=== PATIENT | female | born 1960 | race Caucasian/White ===

== ENCOUNTER 2019-09-25 13:30 | Outpatient (CLI) | payer MEDICARE, MEDICAID, SELFPAY ==
--- NOTE | 2019-09-25 13:36 | US_ITS ---
WS: [id number] Bilateral renal ultrasound, 09/25/2019 Clinical Data: CHRONIC KIDNEY DZ/STAGE 3 Comparison: Ultrasound, 12/22/2016. Findings: The right kidney measures 11.4 cm x 5.1 cm x 5.0 cm and the left kidney is 10.6 cm x 5.6 cm x 5.5 cm. There is a right renal cyst measuring 2.48 x 2.71 x 2.90 cm. There is a left renal cyst measuring 3. 08 x 3.49 x 3.98 cm. The renal cortical margins are normal. No hydronephrosis or renal calculi are no jigar. The abdominal aorta and inferior vena cava show no vascular abnormalities. The bladder was scanned and was not remarkable. US/US renal BI* [id number] Impression: Bilateral renal cysts.
== END 2019-09-25 13:31 | disposition home or self-care (01) ==
LOC: RAD 13:34
PROVIDERS: Family Provider Internal Medicine; PCP Internal Medicine; Visit Provider Internal Medicine
DX: N18.3 Chronic kidney disease, stage 3 (moderate) (principal); N28.1 Cyst of kidney, acquired
CPT/HCPCS: 76770

== ENCOUNTER 2019-09-27 09:23 | Outpatient (RCR) | payer MEDICARE, MEDICAID, SELFPAY | END 2019-10-13 23:59 | disposition home or self-care (01) | LOC: SPT 09:23 | PROVIDERS: Family Provider Internal Medicine; PCP Internal Medicine; Referring Provider Internal Medicine; Visit Provider Internal Medicine | DX: M25.512 Pain in left shoulder (principal) | CPT/HCPCS: 97110; 97161; 97530 ==

== ENCOUNTER 2019-10-14 06:00 | Outpatient (RCR) | payer MEDICARE, MEDICAID, SELFPAY | END 2019-11-11 23:59 | disposition home or self-care (01) | LOC: SPT 06:00 | PROVIDERS: Family Provider Internal Medicine; PCP Internal Medicine; Referring Provider Internal Medicine; Visit Provider Internal Medicine | DX: M25.512 Pain in left shoulder (principal) | CPT/HCPCS: 97110 ==

== ENCOUNTER 2020-04-19 13:13 | Outpatient (CLI) | payer MEDICARE, MEDICAID, SELFPAY ==
--- NOTE | 2020-04-19 13:55 | USCV_ITS ---
Keren Degroot Age: 60 Gender: F : 1960 Exam Date: 04/19/2020 14:01 Ordering Phys: Hannah Rowan MD Technologist: Dimitri Frias [place] [facility] [place] RT LEG PAIN AND SWELLING HISTORY: Lower extremity edema. PROCEDURES: Venous duplex imaging was performed in only the right lower extremity. The following venous structures were evaluated: common femoral vein, profunda vein, proximal portion of the greater saphenous vein, superficial femoral vein, and the popliteal vein. In addition, the posterior tibial and peroneal trunk were evaluated. On the right side, the common femoral, superficial femoral, profunda femoral, popliteal, posterior tibial, greater saphenous veins and the peroneal trunk were identified and interrogated in the standard fashion. These veins were found to be easily compressible with spontaneous blood flow. No evidence of insufficiency or thrombus noted. FINDINGS: Normal 2-D Doppler and augmentation and compressibility throughout the lower extremity venous structures. Additional imaging through the proximal calf veins also reveals no thrombus. Limited evaluation of the greater saphenous vein is patent with no thrombus.. CONCLUSIONS No DVT in the above-mentioned identifiable veins Dr Kathleen Knox MD [facility] (Electronically Signed) Final Date: 19 April 2020 17:37 S
== END 2020-04-19 13:14 | disposition home or self-care (01) ==
LOC: RAD 13:16
PROVIDERS: PCP Internal Medicine; Visit Provider Internal Medicine
DX: M79.604 Pain in right leg (principal); M79.89 Other specified soft tissue disorders
CPT/HCPCS: 93971

== ENCOUNTER 2020-06-05 09:43 | Outpatient (CLI) | payer MEDICARE, MEDICAID, SELFPAY ==
--- NOTE | 2020-06-05 09:51 | MM_ITS ---
WS: [id number] BILATERAL SCREENING DIGITAL MAMMOGRAM WITH CAD HISTORY: SCREEN COMPARISON: 02/17/2019 and 07/18/2015 Bilateral CC and MLO views submitted. Computer aided detection analyzed. Breast composition: There are scattered areas of fibroglandular density. No suspicious masses, microc alcifications or architectural distortion. Stable 5 mm nodule upper outer quadrant LEFT breast. MM/[place] [id number] IMPRESSION: BI-RADS: 2-Benign FOLLOW UP: 1 Year Follow-up
== END 2020-06-05 09:44 | disposition home or self-care (01) ==
LOC: RADSHAW 09:46
PROVIDERS: PCP Internal Medicine; Visit Provider Internal Medicine
DX: Z12.31 Encounter for screening mammogram for malignant neoplasm of breast (principal)
CPT/HCPCS: 77067

== ENCOUNTER 2021-03-13 14:59 | Outpatient (CLI) | payer MEDICARE, MEDICAID, SELFPAY ==
--- NOTE | 2021-03-13 15:15 | MR_ITS ---
WS: [id number] MRI HEAD WITH CONTRAST TECHNIQUE: Sagittal T1, T2 axial, T2 axial FLAIR, axial susceptibility weighted imaging, axial diffus ion weighted images, and coronal T2 images were obtained. Pre and post-T1 axial and post T1 coronal i mages. ADC and FSPGR images. CLINICAL INFORMATION: VERTIGO,LT SIDE OF BODY WEAKNESS COMPARISON: CT 3 18,015 FINDINGS: No evidence of restricted diffusion to suggest acute ischemia. Ventricles system and basal cisterns a re patent. Mild small vessel changes. Mild parenchymal volume loss. Normal posterior fossa. Normal va scular flow voids at the skull base. No extra-axial fluid collections. No evidence of mass or mass ef fect. Paranasal sinuses and mastoid air cells well aerated. No hemosiderin on the susceptibility weig hted images. Temporal lobes and hippocampal formations are normal in appearance. No abnormal gadolinium enhancement. Normal visualized dural venous sinuses. Normal optic chiasm and p ituitary infundibulum. Normal cavernous sinuses and Meckel's cave. MR/MR head wo/w con [id number] IMPRESSION: 1. No evidence of restricted diffusion to suggest acute ischemia. 2. Mild small vessel changes with mild parenchymal volume loss. 3. No abnormal intracranial enhancement. 4. No hemosiderin on the susceptibly weighted images. 5. Paranasal sinuses and mastoid air cells well aerated. 6. No other significant findings.
[2021-03-13 16:13] LABS: Blood Urea Nitrogen 22 mg/dL (8-23); Glomerular Filtration Rate 38.4 mL/min (90-130)
== END 2021-03-13 15:00 | disposition home or self-care (01) ==
LOC: RADSHAW 15:02
PROVIDERS: PCP Internal Medicine; Visit Provider Internal Medicine
DX: R42 Dizziness and giddiness (principal); G81.90 Hemiplegia, unspecified affecting unspecified side
CPT/HCPCS: 36415; 70553; 82565; 84520; A9579

== ENCOUNTER 2021-06-03 09:17 | Outpatient (RCR) | payer MEDICARE, MEDICAID, SELFPAY | END 2021-06-12 23:59 | disposition home or self-care (01) | LOC: SPT 09:17 | PROVIDERS: PCP Internal Medicine; Referring Provider Internal Medicine; Visit Provider Internal Medicine | DX: R42 Dizziness and giddiness (principal) | CPT/HCPCS: 95992; 97162 ==

== ENCOUNTER → 2021-07-03 15:13 | Outpatient (BNVA) | payer MEDICARE, MEDICAID, SELFPAY | PROVIDERS: PCP Internal Medicine; Visit Provider Surgery | DX: K21.9 Gastro-esophageal reflux disease without esophagitis (principal); Z20.822 Contact with and (suspected) exposure to COVID-19 | CPT/HCPCS: 87635 ==

== ENCOUNTER 2021-07-09 04:06 | Emergency (ER) | payer MEDICARE, MEDICAID, SELFPAY ==
[2021-07-09 04:13] VITALS: BP 175/114; PULSE 89; RESP 18; TEMP 37; O2SAT 95; BMI 50.2
--- NOTE | 2021-07-09 04:29 | ED_ITS ---
HPI - Neck Pain/Injury General: Chief Complaint: Neck Pain/Injury Stated Complaint: R Side of Neck Extreme Pain Time Seen by Provider: 07/09/21 04:09 Source: patient Mode of arrival: ambulatory Limitations: no limitations History of Present Illness: HPI Narrative: 61-year-old female who states she woke up yesterday morning with severe pain in the right side of her neck. She states that neck is very tender to touch along right side of her neck and has pain with any movement looking to the right any vomiting diarrhea. Denies any fevers. Denies any known injuries. Denies any weakness in her right arm or tingling down her arm. Associated symptoms: Denies headache(s) or nausea Review of Systems Const: Denies: fever(s), chills, body aches or change in appetite Eyes: Denies: blurry vision or eye discomfort ENMT: Denies: throat pain or dental pain Card: Denies: chest pain Resp: Denies: dyspnea GI: Denies: abdominal pain, nausea, vomiting or diarrhea : Denies: dysuria Musc: Reports: neck pain Skin/Breast: Denies: rash Neuro: Denies: headache(s) Psych: Denies: depression Kalia/Lymph: Denies: easy bruising All/Imm: Denies: urticaria Physical Exam Const: COMMON NORMALS: no acute distress, patient oriented x3 and healthy appearing HENMT: COMMON NORMALS: normocephalic and atraumatic HEAD & SCALP: normocephalic and atraumatic Eye: COMMON NORMALS: Equal, round and reactive pupils present and EOMs intact bilaterally PUPIL: Yes Equal, round and reactive pupils present Neck/C-Spine: COMMON NORMALS: supple OTHER: Tenderness along the sternocleidomastoid muscle to the right side of her neck reproduces her pain she has pain with any movement try to turn her head to the right Chest: COMMONS NORMALS: normal inspection of the chest and normal palpation of entire chest wall Resp: COMMON NORMALS: normal respiratory effort, No retractions, No use of accessory muscles and clear to auscultation bilaterally AUSCULTATION: clear to auscultation bilaterally Cardio: COMMON NORMALS: regular rate, regular rhythm and No murmurs present (Cardio) RATE: regular rate RHYTHM: regular rhythm GI: COMMON NORMALS: Normal to inspection, nondistended, normoactive bowel sounds present, Soft to palpation, non-tender and no masses PALPATION: Yes Soft to palpation Extremity: COMMON NORMALS: normal to inspection and full ROM Neuro: COMMON NORMALS: patient oriented x3, moves all extremities and no focal motor deficits Psych: COMMON NORMALS: mental status grossly normal, Normal thought process present and cooperative THOUGHT PROCESS: Normal thought process present Skin: COMMON NORMALS: no rashes or lesions noted and no wounds GENERAL SKIN EXAM: no rashes or lesions noted Course Vital Signs: Vital signs: Vital Signs Temperature 98.6 F 07/09/21 04:13 Pulse Rate 89 07/09/21 04:13 Respiratory Rate 18 07/09/21 05:11 Blood Pressure 175/114 07/09/21 04:13 Pulse Oximetry 95 07/09/21 04:13 MDM - Neck Pain/Injury MDM Narrative: Medical decision making narrative: Patient presents with likely cervical spasms right side of her neck along the sternocleidomastoid muscle. She is point tender over the muscle and has pain when she looks to the right she has no signs of meningitis. Patient stable for discharge will prescribe Naprosyn and Robaxin she is to follow-up PCP and return if worsening. Lab Data: Labs: Lab Results 07/09/21 07/09/21 04:40 04:40 WBC 10.5 10^3/uL H 10 ^3/uL (4.0-10.0) RBC 4.71 10^6/uL 10^6 /uL (4.1-5.3) Hgb 14.3 g/dL g/dL (11.5-15.3) Hct 41.0 % % (37.0-47.0) MCV 87.0 fl fl (81-99) MCH 30.4 pg pg (28.0-34.0) MCHC 34.9 g/dL g/dL (30.0-36.0) RDW 12.9 % % (12.1-15.1) Plt Count 318 10^3/cmm 10^3 /cmm (130-400) MPV 11.0 fL H fL (7.4-10.4) Neut % (Auto) 77.1 % % Lymph % (Auto) 13.3 % % [place] % (Auto) 7.9 % % Eos % (Auto) 0.6 % % Baso % (Auto) 0.8 % % Neut # (Auto) 8.09 10^3/uL H 10 ^3/uL (1.8-7.7) Lymph # (Auto) 1.4 10^3/uL 10^3/ uL (0.8-4.8) [place] # (Auto) 0.8 10^3/uL 10^3/ uL (0.2-0.9) Eos # (Auto) 0.1 10^3/uL 10^3/ uL (0.0-0.8) Baso # (Auto) 0.1 10^3/uL 10^3/ uL (0.0-0.1) Nucleated RBC % (a uto) 0 % % Nucleated RBCs # 0.0 /100WBC /100W BC Sodium 138 mmol/L mmol/L (136-145) Potassium 4.0 mmol/L mmol/L (3.5-5.1) Chloride 101 mmol/L mmol/L (98-107) Carbon Dioxide 23 mmol/L mmol/L (22-29) Anion Gap 18.0 (5-19) BUN 18 mg/dL mg/dL (8-23) Calculated Osmolal ity 289 mOsm/kg mOsm/ kg (285-295) Calcium 9.5 mg/dL mg/dL (8.5-10.5) Total Bilirubin 0.7 mg/dL mg/dL (0.15-1.2) AST 15 U/L U/L (0-32) ALT < 5 U/L U/L (0-33) Alkaline Phosphata se 79 IU/L IU/L (35-105) Total Protein 7.9 g/dL g/dL (6.6-8.7) Albumin 4.2 g/dL g/dL (3.5-5.2) Globulin 3.7 g/dL g/dL (1.3-4.6) Discharge Plan Discharge Patient Disposition: Home Clinical Impression: Strain of neck muscle Qualifiers: Encounter type: initial encounter Qualified Code(s): S16.1XXA - Strain of muscle, fascia and tendon at neck level, initial encounter Condition: Stable Prescriptions: New Naprosyn 500 mg tablet 500 mg PO BID PRN (Reason: pain) Qty: 20 RF: 0 methocarbamol 750 mg tablet 750 mg PO Q6H PRN (Reason: spasms) Qty: 20 RF: 0 No Action omeprazole 20 mg capsule,delayed release(DR/EC) 20 mg PO DAILY RF: 0 cyclobenzaprine 15 mg capsule,extended release 24hr 15 mg PO DAILY RF: 0 diclofenac sodium 50 mg tablet,delayed release (DR/EC) 50 mg PO DAILY RF: 0 cholecalciferol (vitamin D3) 1,250 mcg (50,000 unit) capsule 1,250 mcg PO DAILY RF: 0 lidocaine 5 % ointment 1 applic topical DAILY PRN (Reason: Pain) RF: 0 Discharge Orders: Discharge ED (Routine); Ordered 07/09/21 Ordered By: Nathan Cárdenas Referrals: Hannah Rowan MD [Primary Care Provider] - 1-3 days Discharge Diet: Advance as tolerated Discharge Activity: Resume usual activity Patient Instructions: Cervical Strain (ED), Spasmodic Torticollis (ED) Coding Level of Care Code ED Chief Wellness Officer for Chg Fwd Exam Comprehensive
[2021-07-09 04:55] LABS: Basophils # 0.1 10^3/uL (0.0-0.1); Basophils % 0.8 %; Eosinophils # 0.1 10^3/uL (0.0-0.8); Eosinophils % 0.6 %; Hemoglobin 14.3 g/dL (11.5-15.3); Lymphocytes # 1.4 10^3/uL (0.8-4.8); Lymphocytes % 13.3 %; Mean Corpuscular HGB Conc 34.9 g/dL (30.0-36.0); Mean Corpuscular Hemoglobin 30.4 pg (28.0-34.0); Monocytes # 0.8 10^3/uL (0.2-0.9); Monocytes % 7.9 %; Neutrophils # 8.09 10^3/uL (1.8-7.7); Neutrophils % 77.1 %; Nucleated Red Blood Cells % 0 %; Platelet Count 318 10^3/cmm (130-400); Red Blood Count 4.71 10^6/uL (4.1-5.3); Red Cell Distribution Width 12.9 % (12.1-15.1); White Blood Count 10.5 10^3/uL (4.0-10.0)
[2021-07-09 05:11] VITALS: RESP 18
[2021-07-09] MEDS: diazePAM 5 mg Tablet PO (05:11)
[2021-07-09] MEDS: morphine 4 mg/mL SDV 1 mL IVP (05:11)
[2021-07-09 05:23] LABS: Alanine Aminotransferase < 5 U/L (0-33); Albumin Level 4.2 g/dL (3.5-5.2); Alkaline Phosphatase 79 IU/L (35-105); Aspartate Amino Transferase 15 U/L (0-32); Blood Urea Nitrogen 18 mg/dL (8-23); Calcium 9.5 mg/dL (8.5-10.5); Carbon Dioxide 23 mmol/L (22-29); Chloride 101 mmol/L (98-107); Globulin 3.7 g/dL (1.3-4.6); Glomerular Filtration Rate 50.5 mL/min (90-130); Glucose 125 mg/dL (65-115); Osmolality Calculated 289 mOsm/kg (285-295); Sodium 138 mmol/L (136-145); Total Bilirubin 0.7 mg/dL (0.15-1.2); Total Protein 7.9 g/dL (6.6-8.7)
[2021-07-09 06:09] VITALS: BP 170/100; PULSE 82; RESP 18; O2SAT 98
== END 2021-07-09 06:12 | disposition home or self-care (01) ==
PROVIDERS: Emergency Provider Emergency Medicine; PCP Internal Medicine
DX: S16.1XXA Strain of muscle, fascia and tendon at neck level, initial encounter (principal); M54.2 Cervicalgia
CPT/HCPCS: 80053; 85025; 96374; 99283; J2270

== ENCOUNTER 2021-07-09 07:14 | Day surgery (SDC) | payer MEDICARE, MEDICAID, SELFPAY ==
--- NOTE | 2021-07-09 07:57 | ANES.PREANE2 ---
Pre-Anesthetic Assessment Pre-Anesthetic Assessment: Height/Weight: Height 1.78 m Weight 159.665 kg Preop Diagnosis: Abdominal pain with acid reflux Proposed Procedure: Operation Date: 07/09/21 08:45 Proposed Procedures p EGD 49662 K21.9(Not Applicable) - Navdeep Miller MD Was Beta Richar taken within 24 hours: N/A Was Clonidine taken within 24 hours: N/A Social: Social History: No alcohol and No tobacco Exam: Pre-Anes Outpt Exam: alert, oriented x 3, clear to auscultation bilaterally and regular rate & rhythm Airway: Submandibular: WNL Cervical ROM: Other (limited b/c of pain) MP: 2 Additional comments: Missing several GI: GI: GERD Metabolic: Metabolic: Morbid obesity Musc/skel: Musc/skel: Lower Back Pain Anesthetic Plan: ASA status: 3 Anesthesia: MAC Risk of > 500 ml blood loss (7ml/kg in children): No Data Anesthesia Cardiac Studies: No Data to Display
[2021-07-09 08:11] VITALS: BP 150/113; PULSE 95; RESP 22; TEMP 37.1; O2SAT 97
[2021-07-09] MEDS: ondansetron 2 mg/ML SDV 2 mL 4 MG IVP (08:34)
[2021-07-09] MEDS: sodium chloride 0.9% 1,000 ML 30 ML IV (08:38)
--- NOTE | 2021-07-09 08:44 | W.PM.OPSUD ---
Surgery/Procedure H&P Update DATE OF PROCEDURE: July 09, 2021 DATE H&P PERFORMED: 06/19/21 H&P UPDATE INFORMATION: I have reviewed H&P completed within last 30 days, I have examined patient prior to procedure and Changes to prior documentation as noted here CHANGES TO PREVIOUS DOCUMENTATION: She reports that she has been having spasms of her neck and she had checked with her spine surgeon in [facility] and was told that her plates in good position. Recently patient went to the emergency department because of the spasms when she was given pain medications. I did offer the patient to abort the procedure since it is an elective procedure and she is interested to proceed. Patient understands the potential risks associated with positioning her during the endoscopy that can lead to worsening numbness of her hands and ultimately may lead to weakness or even paralysis. The discussion took place in the presence of patient's daughter and she is interested to proceed accordingly. PREOP DIAGNOSIS: Abdominal pain with acid reflux PRIMARY INDICATION FOR PROCEDURE: The same PLANNED PROCEDURE: Operation Date: 07/09/21 08:45 Proposed Procedures p EGD 02108 K21.9(Not Applicable) - Navdeep Miller MD
[2021-07-09 09:44] VITALS: BP 127/103; PULSE 67; RESP 16; TEMP 36.7; O2SAT 95
[2021-07-09 09:53] VITALS: BP 131/103; PULSE 70; RESP 20; TEMP 37; O2SAT 97
--- NOTE | 2021-07-09 11:19 | ANE.PACU2 ---
Inpatient post-anesthesia follow up: Airway intact: Yes Vital signs: Temperature 98.6 F Pulse Rate 70 Respiratory Rate 20 Blood Pressure 131/103 Pulse Oximetry 97 Oxygen Delivery Me thod Room Air Oxygen Flow Rate 4 Fraction of Inspir ed Oxygen Hydration adequate: Yes Nausea and vomiting: No Pain level: 4 Pain level: pt with neck pain noted prior to procedure Mental status: Baseline
[2021-07-10 13:13] LABS: H. Pylori / CLO Test Negative
== END 2021-07-09 10:20 | disposition home or self-care (01) ==
PROVIDERS: PCP Internal Medicine; Visit Provider Surgery
PROC: 0DJ08ZZ Inspection of Upper Intestinal Tract, Via Natural or Artificial Opening Endoscopic (ICD-10-PCS; CPT 43235; principal; 2021-07-09 08:45)
DX: K21.9 Gastro-esophageal reflux disease without esophagitis (principal); K21.00 Gastro-esophageal reflux disease with esophagitis, without bleeding; K29.70 Gastritis, unspecified, without bleeding; E66.01 Morbid (severe) obesity due to excess calories; Z68.43 Body mass index [BMI] 50.0-59.9, adult
CPT/HCPCS: 43239; 87077; 96361; 96374; J1170; J2405; J2704; J7030

== ENCOUNTER 2021-12-23 03:28 | Emergency (ER) | payer MEDICARE, MEDICAID, SELFPAY ==
[2021-12-23 03:33] VITALS: BP 166/99; PULSE 81; RESP 22; TEMP 36.6; O2SAT 96; BMI 44.6
--- NOTE | 2021-12-23 03:41 | ED_ITS ---
HPI - General Adult General: Chief complaint: General Medical Stated complaint: Lt Side Pain Maybe Pinched Nerve Time Seen by Provider: 12/23/21 03:33 History of Present Illness: Ms. Degroot is a 61-year-old lady without significant past medical history who presents to the emergency department due to left-sided and back pain with radiation. She endorses onset of symptoms subacute appr oximately 3 to 4 days ago without specific known provoking factor. Since that time symptoms have waxed and waned however is constantly been present. It is in her left lateral chest/ribs and radiates around. Intensity of symptoms is moderate to severe. Course has been worsening. Worse with lying down, movement. No other signs systemic illness that she identifies. She has tried home medications without significant relief. And HPI. Onset (ago): day(s) Location: back and left Radiation: abdomen and flank Severity: moderate Quality: aching Pain Consistency: constant Relieving factors: none Exacerbating factors: movement Review of Systems General: Reports: 10 or more systems reviewed and unremarkable except in HPI and below PFSH ED PFSH: Medical History Gastritis History of major trauma Surgical History Hx of pelvic surgery Physical Exam Const: COMMON NORMALS: alert GENERAL APPEARANCE: cooperative, well developed and in distress (Uncomfortable appearing due to pain) HENMT: COMMON NORMALS: normocephalic and atraumatic HEAD & SCALP: normocephalic and atraumatic Eye: COMMON NORMALS: conjunctivae normal CONJUNCTIVA: Yes conjunctivae normal SCLERA: sclerae normal Neck/C-Spine: COMMON NORMALS: supple GENERAL: Yes trachea midline Resp: COMMON NORMALS: clear to auscultation bilaterally EFFORT & INSPECTION: Yes able to speak in complete sentences AUSCULTATION: clear to auscultation bilaterally Cardio: COMMON NORMALS: regular rate and regular rhythm RATE: regular rate RHYTHM: regular rhythm GI: COMMON NORMALS: Soft to palpation PALPATION: Yes Soft to palpation and No Tenderness to palpation present (GI) Back/Pelvis: THORACIC SPINE/UPPER BACK: No thoracic spinal tenderness LUMBAR SPINE/LOWER BACK: No lumbar spinal tenderness OTHER: No specific area of worse elicited pain on left back and flank. Extremity: GENERAL: Yes normal exam except as noted and No edema Neuro: COMMON NORMALS: moves all extremities SENSORIUM/ORIENTATION: Yes alert and No Orientation impaired Psych: COMMON NORMALS: mental status grossly normal and Normal thought process present THOUGHT PROCESS: Normal thought process present Course ED course: - Patient was seen and evaluated by me at bedside - Patient placed on cardiac monitors, IV access obtained - Initial evaluation notable for exam as above. Clinical history not totally consistent with strictly musculoskeletal pain and therefore additional evaluation felt to be warranted. - Labs and xrays personally interpreted by me -Analgesia given - Labs notable for no leukocytosis, normal hemoglobin. Metabolic panel with mildly elevated creatinine, similar noted in the past. Urinalysis with squamous epithelial contamination. Given reported clinical history including lack of fe marshall and no leukocytosis in the absence of specific urinary symptoms I do not believe that patient has urinalysis and exam/history certainly not consistent with pyelonephritis. - Imaging notable for no lobar consolidation or pneumothorax - Upon serial reexamination after treatment the patient was improved with moderate improvement of pain - Based on patient history, evaluation, and testing as interpreted the most likely cause of the patient's condition is flank and back pain of uncertain etiology, possibly musculoskeletal. I did offer the patient imaging versus watchful waiting at home with symptom treatment and strict return precautions, patient desires trial of symptom control at home. - The results of ED evaluation were discussed with the patient including prescriptions and/or symptomatic cares (if applicable) including appropriate and responsible use, followup plan, and return precautions. The patient verbalized understanding and felt safe for discharge. - Patient discharged in satisfactory condition. Note: Click bubbles or prepopulated jurado in note writing are used for assistance with data collection and billing and are inherently more limited than narrative and other text portions of this note. Please use narrative for additional clinical history and defer to narrative/free test for any case of contradictory information. If information appears in only free text or click bubble it should be considered present or absent as reported. Please contact note repairer typewriter for clarifications of clinical information or contradictory information. MDM is a brief summary, contradictory or erroneous seeming information should be clarified and full note should be reviewed. Vital Signs: Vital signs: Vital Signs Temperature 97.8 F 12/23/21 03:33 Pulse Rate 81 12/23/21 03:33 Respiratory Rate 22 H 12/23/21 03:33 Blood Pressure 166/99 12/23/21 03:33 Pulse Oximetry 96 12/23/21 03:33 MDM - General Adult Medical Decision Making 61-year-old lady presenting with multiple day history of left flank and back pain. Hematologic panel unremarkable, some baseline CKD appears to exist, no evidence of urinary tract infection given squamous epithelial contamination. Offered imaging versus discharge with symptom treatment as the patient had improvement from ED treatment, she was comfortable with discharge and strict return precautions. Medical Records I reviewed the patient's medical records. Lab Data I reviewed the patient's lab results. : 12/23/21 04:05 12/23/21 04:05 Radiology Impressions Chest X-Ray 12/23/21 03:51 IMPRESSION: Borderline cardiomegaly , without acute airspace or pleural disease. Laboratory Results WBC 5.6 10^3/uL (4.0-10.0) 12/23/21 04:05 RBC 4.58 10^6/uL (4.1-5.3) 12/23/21 04:05 Hgb 13.7 g/dL (11.5-15.3) 12/23/21 04:05 Hct 42.0 % (37.0-47.0) 12/23/21 04:05 MCV 91.7 fl (81-99) 12/23/21 04:05 MCH 29.9 pg (28.0-34.0) 12/23/21 04:05 MCHC 32.6 g/dL (30.0-36.0) 12/23/21 04:05 RDW 14.0 % (12.1-15.1) 12/23/21 04:05 Plt Count 336 10^3/cmm (130-400) 12/23/21 04:05 MPV 11.1 fL (7.4-10.4) H 12/23/21 04:05 Neut % (Auto) 47.1 % 12/23/21 04:05 Lymph % (Auto) 36.0 % 12/23/21 04:05 [place] % (Auto) 9.0 % 12/23/21 04:05 Eos % (Auto) 5.9 % 12/23/21 04:05 Baso % (Auto) 1.8 % 12/23/21 04:05 Neut # (Auto) 2.61 10^3/uL (1.8-7.7) 12/23/21 04:05 Lymph # (Auto) 2.0 10^3/uL (0.8-4.8) 12/23/21 04:05 [place] # (Auto) 0.5 10^3/uL (0.2-0.9) 12/23/21 04:05 Eos # (Auto) 0.3 10^3/uL (0.0-0.8) 12/23/21 04:05 Baso # (Auto) 0.1 10^3/uL (0.0-0.1) 12/23/21 04:05 Nucleated RBC % (auto) 0 % 12/23/21 04:05 Nucleated RBCs # 0.0 /100WBC 12/23/21 04:05 Sodium 138 mmol/L (136-145) 12/23/21 04:05 Potassium 4.2 mmol/L (3.5-5.1) 12/23/21 04:05 Chloride 103 mmol/L (98-107) 12/23/21 04:05 Carbon Dioxide 25 mmol/L (22-29) 12/23/21 04:05 Anion Gap 14.2 (5-19) 12/23/21 04:05 BUN 13 mg/dL (8-23) 12/23/21 04:05 Creatinine 1.4 mg/dL (0.5-0.9) H 12/23/21 04:05 GFR Calculation 38.2 mL/min (90-130) L 12/23/21 04:05 Glucose 125 mg/dL (65-115) H 12/23/21 04:05 Calculated Osmolality 288 mOsm/kg (285-295) 12/23/21 04:05 Calcium 9.5 mg/dL (8.5-10.5) 12/23/21 04:05 Total Bilirubin 0.4 mg/dL (0.15-1.2) 12/23/21 04:05 AST 18 U/L (0-32) 12/23/21 04:05 ALT 7 U/L (0-33) 12/23/21 04:05 Alkaline Phosphatase 64 IU/L (35-105) 12/23/21 04:05 Total Protein 7.6 g/dL (6.6-8.7) 12/23/21 04:05 Albumin 4.3 g/dL (3.5-5.2) 12/23/21 04:05 Globulin 3.3 g/dL (1.3-4.6) 12/23/21 04:05 Lipase 18 U/L (13-60) 12/23/21 04:05 Urine Color Yellow (Yellow) 12/23/21 04:55 Urine Appearance Sl hazy (CLEAR) 12/23/21 04:55 Urine pH 5 (5-7) 12/23/21 04:55 Ur Specific [place] 1.015 (1.005-1.030) 12/23/21 04:55 Urine Protein Neg (Negative) 12/23/21 04:55 Urine Glucose (UA) Norm (Normal) 12/23/21 04:55 Urine Ketones Negative (Negative) 12/23/21 04:55 Urine Blood Neg (Negative) 12/23/21 04:55 Urine Nitrate Positive (Negative) H 12/23/21 04:55 Urine Bilirubin Neg (Negative) 12/23/21 04:55 Urine Urobilinogen Norm mg/dL (Negative) 12/23/21 04:55 Ur Leukocyte Esterase Negative (Negative) 12/23/21 04:55 Urine RBC 0-4 /hpf (0-2) H 12/23/21 04:55 Urine WBC 15-25 /hpf (0-5) H 12/23/21 04:55 Ur Squamous Epith Cells 15-25 /hpf (0-5) H 12/23/21 04:55 Amorphous Sediment Not Reportable 12/23/21 04:55 Urine Bacteria 4+ /hpf (NONE) H 12/23/21 04:55 Discharge Plan Discharge Patient Disposition: Home Clinical Impression: Acute flank pain, Creatinine elevation Condition: Stable Prescriptions: New Valium 5 mg tablet 5 mg PO Q8H PRN (Reason: muscle spasm) Qty: 6 0RF No Action cyclobenzaprine 15 mg capsule,extended release 24hr 15 mg PO DAILY 0RF diclofenac sodium 50 mg tablet,delayed release (DR/EC) 50 mg PO DAILY 0RF Hold Instructions: Resume on 07/14/21. cholecalciferol (vitamin D3) 1,250 mcg (50,000 unit) capsule 1,250 mcg PO DAILY 0RF lidocaine 5 % ointment 1 applic topical DAILY PRN (Reason: Pain) 0RF furosemide 20 mg Tablet 20 mg PO PRN 0RF ondansetron 4 mg Tablet,Disintegrating 4 mg PO PRN PRN (Reason: Nausea) 0RF Carafate 1 gram tablet 1 g PO TID 84 Days Qty: 252 1RF omeprazole 20 mg capsule,delayed release(DR/EC) 20 mg PO BIDWM Qty: 60 3RF methocarbamol 750 mg tablet 750 mg PO Q6H PRN (Reason: spasms) Qty: 20 0RF Discharge Orders: Discharge ED (Routine); Ordered 12/23/21 Ordered By: Isaac Marie Referrals: Hannah Rowan MD [Primary Care Provider] - Discharge Diet: Usual diet Discharge Activity: Increase activity as tolerated Patient Instructions: Diazepam (By mouth), Flank Pain (ED), Back Pain (ED), Opioid Safety Activity Restrictions/Additional Instructions: Thank you for visiting the emergency department. You were seen and evaluated for flank and back pain. The exact cause of your symptoms is unclear though based on description of symptoms may be musculoskeletal in nature. Will be given prescriptions for symptom control. Please follow-up with your primary care provider. Please return to the emergency department for uncontrolled symptoms or anything else that you are concerned about and feel needs emergency department evaluation. Coding Level of Care Code ED Senior Professional Services Consultant for Kaleb Fwpantera Exam Comprehensive
--- NOTE | 2021-12-23 03:51 | XRR_ITS ---
PROCEDURE INFORMATION: Exam: XR Chest Exam date and time: 12/23/2021 4:22 AM Age: 61 years old Clinical indication: Pain; Left-sided; Additional info: Left chest pain TECHNIQUE: Imaging protocol: XR of the chest. Views: 1 view. COMPARISON: CR Chest 1 [place] [id number] 07/25/2019 6:49 PM FINDINGS: Lungs: No acute airspace disease. Pleural spaces: No pleural effusion. Heart/Mediastinum: Borderline cardiomegaly and mild mediastinal widening. Bones/joints: Cervical spine fusion. Degenerative change. XR/XR chest 1V portable [id number] IMPRESSION: Borderline cardiomegaly , without acute airspace or pleural disease.
[2021-12-23] MEDS: acetaminophen 500 mg Tablet 1000 MG PO (03:58)
[2021-12-23] MEDS: diazePAM 5 mg Tablet PO (03:58)
[2021-12-23] MEDS: ketorolac 30 mg/mL INJ 15 MG IVP (03:58)
[2021-12-23 04:15] LABS: Basophils # 0.1 10^3/uL (0.0-0.1); Basophils % 1.8 %; Eosinophils # 0.3 10^3/uL (0.0-0.8); Eosinophils % 5.9 %; Hemoglobin 13.7 g/dL (11.5-15.3); Mean Corpuscular HGB Conc 32.6 g/dL (30.0-36.0); Mean Corpuscular Hemoglobin 29.9 pg (28.0-34.0); Mean Corpuscular Volume 91.7 fl (81-99); Mean Platelet Volume 11.1 fL (7.4-10.4); Monocytes # 0.5 10^3/uL (0.2-0.9); Neutrophils # 2.61 10^3/uL (1.8-7.7); Neutrophils % 47.1 %; Nucleated Red Blood Cells % 0 %; Platelet Count 336 10^3/cmm (130-400); Red Blood Count 4.58 10^6/uL (4.1-5.3); White Blood Count 5.6 10^3/uL (4.0-10.0)
[2021-12-23 04:39] LABS: Alanine Aminotransferase 7 U/L (0-33); Albumin Level 4.3 g/dL (3.5-5.2); Alkaline Phosphatase 64 IU/L (35-105); Anion Gap 14.2 (5-19); Aspartate Amino Transferase 18 U/L (0-32); Blood Urea Nitrogen 13 mg/dL (8-23); Calcium 9.5 mg/dL (8.5-10.5); Carbon Dioxide 25 mmol/L (22-29); Chloride 103 mmol/L (98-107); Globulin 3.3 g/dL (1.3-4.6); Glomerular Filtration Rate 38.2 mL/min (90-130); Glucose 125 mg/dL (65-115); Lipase 18 U/L (13-60); Osmolality Calculated 288 mOsm/kg (285-295); Potassium 4.2 mmol/L (3.5-5.1); Sodium 138 mmol/L (136-145); Total Bilirubin 0.4 mg/dL (0.15-1.2); Total Protein 7.6 g/dL (6.6-8.7)
[2021-12-23 05:30] LABS: Add Urine Microscopic? YES; Bilirubin Urine Neg (Negative); Blood Urine Neg (Negative); Glucose Urine UA Norm (Normal); Ketones Urine Negative (Negative); Leukocyte Esterase Urine Negative (Negative); Nitrate Urine Positive (Negative); Protein Urine Neg (Negative); Specific Gravity, Urine 1.015 (1.005-1.030); Urine Appearance SL Hazy (CLEAR); Urine Color Yellow (Yellow); Urobilinogen Urine Norm (Negative); pH Urine 5 (5-7)
[2021-12-23 05:38] LABS: Bacteria Urine 4+ /hpf; RBC Urine 0-4 /hpf (0-2); Squamous Epithelial Cell Urine 15-25 /hpf (0-5); WBC Urine 15-25 /hpf (0-5)
[2021-12-23 05:39] LABS: Add Urine Culture? No
== END 2021-12-23 05:56 | disposition home or self-care (01) ==
PROVIDERS: Emergency Provider Emergency Medicine; PCP Internal Medicine
DX: R10.9 Unspecified abdominal pain (principal); R79.89 Other specified abnormal findings of blood chemistry
CPT/HCPCS: 71045; 80053; 81001; 83690; 85025; 96374; 99284; J1885

== ENCOUNTER 2022-01-14 14:35 | Outpatient (CLI) | payer MEDICARE, MEDICAID, SELFPAY ==
--- NOTE | 2022-01-14 14:44 | CT_ITS ---
WS: [id number] CT ABDOMEN AND PELVIS NONCONTRAST HISTORY: L FLANK PAIN TECHNIQUE: Imaging performed through the abdomen and pelvis. Coronal and sagittal reformats are submi tted. All CT scans at [facility] use at least one of these dose optimization techniques: auto mated exposure control; mA and/or kV adjustment per patient size (includes targeted exams where dose is matched to clinical indication); or iterative reconstruction. DLP: 1298.83 mGy.cm COMPARISON: 07/25/2019 Lower thorax: Lung bases are clear. Previously described 5 mm nodule at the RIGHT lung base is no hernan janki evident. Heart size is normal. No pericardial effusion. No hernia. Liver: Mild diffuse attenuation throughout the liver but Hounsfield units remain above 40. No intrahe patic dilatation. No mass identified. The liver is mildly prominent. Gallbladder: Normally distended gallbladder. There are numerous stones containing air within the gall bladder. No adjacent inflammation. Pancreas: Mild diffuse atrophy of the pancreas. Spleen: Normal. Adrenal glands: Normal. No mass. Right kidney: Normal size kidney. Patient has known renal cysts. The largest in the mid kidney measur es 3.4 x 2.9 cm. There is no obstruction. Left kidney: Patient has known renal cysts. The largest in the upper pole measures 4.2 x 4.1 cm. No o bstruction of the kidney. Aorta: Normal abdominal aorta, no aneurysm or atherosclerosis. No free fluid or adenopathy. There is some very mild central mesenteric misting with a few scattered lymph nodes within the mesentery. Similar findings seen on the prior examination. GI tract: Normal appearance of the stomach and small bowel. Appendix is normal. No significant divert icular disease. Abdominal wall: Negative. No hernia. Pelvis: Normal distention of the urinary bladder. The uterus is midline. No adnexal masses or adenopa thy. Osseous structures: Advanced degenerative disc disease and vacuum disc phenomenon at L4-5. Additional mild disc space narrowing at L5-S1. Large screws extend through the sacrum across the SI joints bila terally. These were present on the prior examinations. CT/CT kidney stone [id number] IMPRESSION: 1. No acute abdominal or pelvic abnormalities. 2. No renal stone or obstruction. 3. Bilateral renal cystic masses. 4. Cholelithiasis. Numerous stones in the gallbladder without acute cholecysti tis. 5. Mild central mesenteric misting with diffuse very small lymph nodes. These changes can be seen with changes of cirrhosis and portal hypertension or early findings for lymphoma. No significant change since 07/25/2019.
== END 2022-01-14 14:36 | disposition home or self-care (01) ==
LOC: RAD 14:38
PROVIDERS: PCP Internal Medicine; Visit Provider Internal Medicine
DX: R10.9 Unspecified abdominal pain (principal); K80.20 Calculus of gallbladder without cholecystitis without obstruction
CPT/HCPCS: 74176

== ENCOUNTER 2022-05-26 12:15 | Outpatient (CLI) | payer MEDICARE, MEDICAID, SELFPAY ==
--- NOTE | 2022-05-26 12:25 | XRR_ITS ---
PROCEDURE INFORMATION: Exam: XR Left Shoulder Exam date and time: 05/26/2022 12:28 PM Age: 62 years old Clinical indication: Pain; Left; Prior surgery; Surgery type: C spine; Patient HX: Reaching back and hurt shoulder; Additional info: Pain in left shoulder TECHNIQUE: Imaging protocol: Radiologic exam of the Left shoulder. Views: 2 or more views. COMPARISON: CR XR chest 1V portable [id number] 12/23/2021 4:22 AM FINDINGS: Bones/joints: Negative for acute bony abnormality. A bone spurs present on the inferior aspect of the humeral head. Soft tissues: Ossific soft tissue densities seen in the left axillary region. These findings have increased in number since prior examination. XR/XR shoulder LT min 2V* [id number] IMPRESSION: 1. No acute findings. 2. Soft tissue ossific densities left axilla. 3. 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
== END 2022-05-26 12:16 | disposition home or self-care (01) ==
LOC: RAD 12:17
PROVIDERS: PCP Internal Medicine; Visit Provider Internal Medicine
DX: M19.012 Primary osteoarthritis, left shoulder (principal)
CPT/HCPCS: 73030

== ENCOUNTER 2022-07-08 11:54 | Outpatient (CLI) | payer MEDICARE, MEDICAID, SELFPAY ==
--- NOTE | 2022-07-08 11:59 | MM_ITS ---
WS: [email or web address] VIEWS: MLO and CC views both breasts. 3D digital tomosynthesis is also included in this exam. Comparison made with prior exam of 07/18/2015, 12/22/2016, 02/17/2019, 06/05/2020.. Findings: There was no sign of mass, architectural distortion or suspicious calcification in either breast. Sta ble appearing nodular densities in the left breast.Fatty MM/[place] [id number] Impression: BI-RADS: 2-Benign FOLLOW-UP: 1 Year Follow-up This mammogram was also analyzed by the Computer Aided Detection System R2 Imag e Histology Teacher.
== END 2022-07-08 11:55 | disposition home or self-care (01) ==
LOC: RAD 11:55
PROVIDERS: PCP Internal Medicine; Visit Provider Internal Medicine
DX: Z12.31 Encounter for screening mammogram for malignant neoplasm of breast (principal)
CPT/HCPCS: 77063; 77067

== ENCOUNTER 2022-11-13 06:00 | Outpatient (RCR) | payer MEDICARE, MEDICAID, SELFPAY | END 2022-12-11 23:59 | disposition home or self-care (01) | LOC: SPT 06:00 | PROVIDERS: PCP Internal Medicine; Visit Provider Physical Medicine & Rehabilitation Sports Medicine | DX: M25.512 Pain in left shoulder (principal) | CPT/HCPCS: 97161 ==

== ENCOUNTER 2023-03-31 14:55 | Outpatient (RCR) | payer MEDICARE, MEDICAID, SELFPAY | END 2023-04-12 23:59 | disposition home or self-care (01) | LOC: SPT 14:55 | PROVIDERS: PCP Internal Medicine; Visit Provider Orthopaedic Surgery | DX: Z96.619 Presence of unspecified artificial shoulder joint (principal) | CPT/HCPCS: 97110; 97161 ==

== ENCOUNTER 2023-04-13 06:00 | Outpatient (RCR) | payer MEDICARE, MEDICAID, SELFPAY | END 2023-05-13 23:59 | disposition home or self-care (01) | LOC: SPT 06:00 | PROVIDERS: PCP Internal Medicine; Visit Provider Orthopaedic Surgery | DX: Z47.1 Aftercare following joint replacement surgery (principal); Z96.612 Presence of left artificial shoulder joint | CPT/HCPCS: 97110 ==

== ENCOUNTER 2023-05-14 06:00 | Outpatient (RCR) | payer MEDICARE, MEDICAID, SELFPAY | END 2023-06-12 23:59 | disposition home or self-care (01) | LOC: SPT 06:00 | PROVIDERS: PCP Internal Medicine; Visit Provider Orthopaedic Surgery | DX: Z96.612 Presence of left artificial shoulder joint (principal) | CPT/HCPCS: 97110 ==

== ENCOUNTER 2023-06-13 06:00 | Outpatient (RCR) | payer MEDICARE, MEDICAID, SELFPAY | END 2023-07-13 23:59 | disposition home or self-care (01) | LOC: SPT 06:00 | PROVIDERS: PCP Internal Medicine; Visit Provider Orthopaedic Surgery | DX: Z47.1 Aftercare following joint replacement surgery (principal); Z96.612 Presence of left artificial shoulder joint | CPT/HCPCS: 97110 ==

== ENCOUNTER 2023-07-14 06:00 | Outpatient (RCR) | payer MEDICARE, MEDICAID, SELFPAY | END 2023-08-12 23:59 | disposition home or self-care (01) | LOC: SPT 06:00 | PROVIDERS: PCP Internal Medicine; Visit Provider Orthopaedic Surgery | DX: Z47.1 Aftercare following joint replacement surgery (principal); Z96.619 Presence of unspecified artificial shoulder joint | CPT/HCPCS: 97110 ==

== ENCOUNTER 2023-08-13 06:00 | Outpatient (RCR) | payer MEDICARE, MEDICAID, SELFPAY | END 2023-09-12 23:59 | disposition home or self-care (01) | LOC: SPT 06:00 | PROVIDERS: PCP Internal Medicine; Visit Provider Orthopaedic Surgery | DX: Z47.1 Aftercare following joint replacement surgery (principal); Z96.619 Presence of unspecified artificial shoulder joint | CPT/HCPCS: 97110 ==

== ENCOUNTER 2023-09-08 12:01 | Outpatient (CLI) | payer MEDICARE, MEDICAID, SELFPAY ==
--- NOTE | 2023-09-08 12:05 | MM_ITS ---
WS: [email or web address] BILATERAL 3D TOMOSYNTHESIS DIGITAL SCREENING MAMMOGRAPHY WITH CAD CLINICAL INFORMATION: SCREENING HISTORY: Screening mammogram. No current complaints. COMPARISON: 2021 TECHNIQUE: Bilateral CC and MLO views. FINDINGS: Scattered fibroglandular densities bilaterally. No suspicious focal mass, asymmetry, calcifications, or architectural distortion. No evidence of malignancy. IMPRESSION: MM/[place] [id number] BI-RADS: 1-Negative FOLLOW UP: 1 Year Follow-up Recommend return to annual screening mammography.
== END 2023-09-08 12:02 | disposition home or self-care (01) ==
LOC: RAD 12:02
PROVIDERS: PCP Internal Medicine; Visit Provider Internal Medicine
DX: Z12.31 Encounter for screening mammogram for malignant neoplasm of breast (principal)
CPT/HCPCS: 77063; 77067

== ENCOUNTER 2023-09-13 06:00 | Outpatient (RCR) | payer MEDICARE, MEDICAID, SELFPAY | END 2023-10-13 23:59 | disposition home or self-care (01) | LOC: SPT 06:00 | PROVIDERS: PCP Internal Medicine; Visit Provider Orthopaedic Surgery | DX: Z47.1 Aftercare following joint replacement surgery (principal); Z96.612 Presence of left artificial shoulder joint | CPT/HCPCS: 97110 ==

== ENCOUNTER 2023-10-14 06:00 | Outpatient (RCR) | payer MEDICARE, MEDICAID, SELFPAY | END 2023-11-11 23:59 | disposition home or self-care (01) | LOC: SPT 06:00 | PROVIDERS: PCP Internal Medicine; Visit Provider Orthopaedic Surgery | DX: Z47.1 Aftercare following joint replacement surgery (principal); Z96.612 Presence of left artificial shoulder joint | CPT/HCPCS: 97110 ==

== ENCOUNTER 2023-11-12 06:00 | Outpatient (RCR) | payer MEDICARE, MEDICAID, SELFPAY | END 2023-12-12 23:59 | disposition home or self-care (01) | LOC: SPT 06:00 | PROVIDERS: PCP Internal Medicine; Visit Provider Orthopaedic Surgery | DX: Z47.1 Aftercare following joint replacement surgery (principal); Z96.612 Presence of left artificial shoulder joint | CPT/HCPCS: 97110 ==

== ENCOUNTER 2024-03-07 12:04 | Outpatient (CLI) | payer MEDICARE, MEDICAID, SELFPAY ==
--- NOTE | 2024-03-07 12:23 | XR_ITS ---
WS: [email or web address] Exam: XR ankle LT min 3V* [id number] Date/Time of Exam: 03/07/2024 12:45 PM Reason For Exam: PAIN IN LEFT ANKLE No acute fracture or dislocation. Moderate degenerative change of the ankle mortise. Mild soft tissue swelling. XR/XR ankle LT min 3V* [id number] IMPRESSION: 1. Moderate degenerative change of the ankle mortise. No fracture.
== END 2024-03-07 12:05 | disposition home or self-care (01) ==
PROVIDERS: PCP Internal Medicine; Visit Provider Internal Medicine
DX: M19.072 Primary osteoarthritis, left ankle and foot (principal)
CPT/HCPCS: 73610

== ENCOUNTER 2024-06-13 13:12 | Outpatient (CLI) | payer MEDICARE, MEDICAID, SELFPAY ==
--- NOTE | 2024-06-13 13:16 | XR_ITS ---
WS: [email or web address] Exam: XR hip LT 2-3V wo/w pel* [id number] Date/Time of Exam: 06/13/2024 1:21 PM Reason For Exam: PAIN IN LEFT HIP Comparison 09/25/2015. Mild to moderate degenerative narrowing of the hip joint. No fracture noted. Normal soft tissues. The re are screws across both visualized sacroiliac joints. XR/XR hip LT 2-3V wo/w pel* [id number] IMPRESSION: 1. Mild to moderate DJD. No fracture.
== END 2024-06-13 13:13 | disposition home or self-care (01) ==
LOC: RAD 13:12
PROVIDERS: PCP Internal Medicine; Visit Provider Internal Medicine
DX: M16.12 Unilateral primary osteoarthritis, left hip (principal)
CPT/HCPCS: 73502

== ENCOUNTER 2024-07-20 11:15 | Outpatient (CLI) | payer MEDICARE, MEDICAID, SELFPAY ==
--- NOTE | 2024-07-20 12:02 | US_ITS ---
WS: [email or web address] ULTRASOUND THYROID TECHNIQUE: Ultrasound of the thyroid. CLINICAL INFORMATION: HX OF HYPOTHYROIDISM COMPARISON: None. FINDINGS: Thyroid: Right and left thyroid lobes are normal in size and echotexture. Well-circumscribed solid nodule RIGHT mid thyroid measuring 1.3 x 1.1 x 1.7 cm. Additional similar-ap pearing solid nodule inferior RIGHT thyroid measuring 1.1 x 0.9 x 0.7 cm. Right thyroid lobe: 4.3 cm x 1.8 cm x 2.0 cm Left thyroid lobe: 4.3 cm x 2.1 cm x 1.6 cm. No suspicious LEFT thyroid nodules. A few tiny incidental cysts. Isthmus: 0.3 mm. Cervical lymphadenopathy: None. US/US thyroid [id number] IMPRESSION: 1. Well-circumscribed solid RIGHT mid thyroid nodule measures 1.3 x 1.1 x 1.7 c m. Recommend further evaluation with ultrasound-guided FNA. TIRADS Category 4: Moderately suspicious (total points = 4) FNA if e1.5 cm Follow if e1 cm (at 1, 2, 3, and 5 year 2. Additional similar-appearing solid inferior RIGHT thyroid nodule measuring 1 .1 x 0.9 x 0.7 cm. Recommend 12-month follow-up. TIRADS Category 4: Moderately suspicious (total points = 4) FNA if e1.5 cm Follow if e1 cm (at 1, 2, 3, and 5 year
== END 2024-07-20 11:17 | disposition home or self-care (01) ==
PROVIDERS: PCP Internal Medicine; Visit Provider Internal Medicine
DX: E04.2 Nontoxic multinodular goiter (principal); Z86.39 Personal history of other endocrine, nutritional and metabolic disease
CPT/HCPCS: 76536

== ENCOUNTER 2024-10-05 11:06 | Outpatient (CLI) | payer MEDICARE, MEDICAID, SELFPAY ==
--- NOTE | 2024-10-05 11:09 | MM_ITS ---
WS: [email or web address] Bilateral screening 3D tomosynthesis digital mammogram, 10/05/2024 11:20 AM Clinical Data: SCREENING Comparison: 09/08/2023, 07/08/2022, 06/05/2020, 02/17/2019, 12/22/2016, 08/06/2015, 07/18/2015. Findings: No spiculated masses or clustered calcifications are seen. There are no secondary signs of carcinoma . MM/MM scr BI tomosynthesis [id number] Impression: Negative bilateral mammogram unchanged. Recommend annual screening mammograms. BIRADS: 1 - Negative. FOLLOW UP: 1 Year Follow-up DENSITY: There are scattered areas of fibroglandular density. The CAD report checker was used
== END 2024-10-05 11:07 | disposition home or self-care (01) ==
LOC: RAD 11:07
PROVIDERS: PCP Internal Medicine; Visit Provider Internal Medicine
DX: Z12.31 Encounter for screening mammogram for malignant neoplasm of breast (principal); R92.323 Mammographic fibroglandular density, bilateral breasts
CPT/HCPCS: 77063; 77067

== ENCOUNTER 2024-10-13 16:05 | Outpatient (CLI) | payer MEDICARE, MEDICAID, SELFPAY ==
--- NOTE | 2024-10-13 16:22 | USR_ITS ---
PROCEDURE INFORMATION: Exam: US Pelvis, Transvaginal, Non-Obstetric Exam date and time: 10/13/2024 4:27 PM Age: 64 years old Clinical indication: Other: Bleeding; Additional info: Post menopausal bleeding TECHNIQUE: Imaging protocol: Real-time transvaginal pelvic (non-obstetric) ultrasound with image documentation. Transvaginal imaging was used for better evaluation of the endometrium, adnexa, and/or cervix. COMPARISON: US renal BI* [id number] 09/25/2019 1:40 PM FINDINGS: Uterus: The uterus is ill-defined measuring approximately 6.4 x 4.5 x 2.9 cm. No myometrial mass lesion identified. Endometrium is thickened up 1.1 cm. No endocavitary fluid collection. No adnexal cyst or mass. Right ovary/adnexa: Nonvisualized, presumed atrophic and obscured by bowel gas Left ovary/adnexa: Not visualized, presumed atrophic and obscured by bowel gas Urinary bladder: Urinary bladder is limited. Intraperitoneal space: No free fluid. US/US transvaginal [id number] IMPRESSION: Thickened endometrium for the patient's age up to 1.1 cm. The differential diagnosis includes endometrial hyperplasia, polyp or neoplasm. Further evaluation/follow-up recommended, as clinically warranted.
== END 2024-10-13 16:06 | disposition home or self-care (01) ==
LOC: RAD 16:06
PROVIDERS: PCP Internal Medicine; Visit Provider Internal Medicine
DX: N95.0 Postmenopausal bleeding (principal); R93.89 Abnormal findings on diagnostic imaging of other specified body structures
CPT/HCPCS: 76830

== ENCOUNTER 2024-12-20 14:51 | Emergency (ER) | payer MEDICARE, MEDICAID, SELFPAY ==
[2024-12-20 14:58] VITALS: BP 171/102; PULSE 88; RESP 20; TEMP 36.7; O2SAT 97; BMI 50.2
--- NOTE | 2024-12-20 14:59 | CT_ITS ---
WS: [email or web address] CT HEAD TECHNIQUE: Noncontrast CT of the head obtained from the skullbase to the vertex. CLINICAL INFORMATION: Symptoms of acute stroke COMPARISON: None. DLP: All CT scans at [facility] use at least one of these dose optimization techniques: automated exposure control; mA and/or kV adjustment per patient size (includes targeted exams where dose is matched to clinical indication); or iterative reconstruction. FINDINGS: No evidence of intracranial hemorrhage or mass effect. Ventricular system and basal cisterns are patent. No extra-axial fluid collections. No evidence of mass or mass effect. Normal hart-white differentiation. Mild small vessel changes. Paranasal sinuses and mastoid air cells are well aerated. .Normal visualized soft tissues. CT/CT head thrombolytic [id number] IMPRESSION: 1. No evidence of intracranial hemorrhage or mass effect. 2. No acute intracranial findings. Notified Nathan Cárdenas MD at 12/20/2024 3:11 PM.
--- NOTE | 2024-12-20 14:59 | CT_ITS ---
WS: [email or web address] CTA HEAD AND NECK TECHNIQUE: Contrast enhanced CTA of the head and neck with coronal and sagittal reformatted images and maximum intensity projection (MIP) images. NASCET criteria utilized. CLINICAL INFORMATION: cva COMPARISON: None. DLP: 851.[address] scans at [facility] use at least one of these dose optimization techniques: automated exposure control; mA and/or kV adjustment per patient size (includes targeted exams where dose is matched to clinical indication); or iterative reconstruction. FINDINGS: RIGHT: RIGHT common carotid artery is patent. No significant RIGHT ICA stenosis. LEFT: LEFT common carotid artery is patent. No significant LEFT ICA stenosis. Codominant and patent vertebral arteries bilaterally. INTRACRANIAL CTA: Proximal basilar artery is patent. Normal vascularity to the MEDICAL AUTHORIZATION SPECIALIST territories bilaterally. Both ICAs are patent at the skull base. Normal vascularity to the JAX and MCA territories bilaterally. No evidence of proximal flow-limiting stenosis. Some images degraded from beam hardening artifact from prior ACDF C5-6. Slight anterolisthesis C3 on C4. CT/CT angio headneck* [id number] IMPRESSION: 1. No flow-limiting intracranial stenosis. 2. No significant cervical ICA stenosis
[2024-12-20 15:04] LABS: Glucose Point of Care 109 mg/dL (70-110)
[2024-12-20 15:08] LABS: Basophils # 0.1 10^3/uL (0.0-0.1); Basophils % 1.6 %; Eosinophils # 0.2 10^3/uL (0.0-0.8); Eosinophils % 3.6 %; Hematocrit 40.5 % (36-47); Lymphocytes # 2.6 10^3/uL (0.8-4.8); Lymphocytes % 38.8 %; Mean Corpuscular HGB Conc 33.1 g/dL (30-55); Mean Corpuscular Hemoglobin 30.1 pg (27-33); Mean Platelet Volume 10.5 fL (7.4-10.4); Monocytes # 0.7 10^3/uL (0.2-0.9); Monocytes % 10.9 %; Neutrophils # 2.99 10^3/uL (1.8-7.7); Neutrophils % 44.7 %; Nucleated Red Blood Cells % 0 %; Platelet Count 359 10^3/cmm (157-399); Red Blood Count 4.45 10^6/uL (3.85-5.65); Red Cell Distribution Width 13.7 % (12.1-15.1)
--- NOTE | 2024-12-20 15:19 | ECG_ITS ---
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 Measurements Intervals [place] Rate: 79 P: 38 NH: 200 QRS: -36 QRSD: 137 T: 72 QT: 395 QTc: 453 Interpretive Statements SINUS RHYTHM LEFT AXIS DEVIATION [QRS AXIS < -30] INTRAVENTRICULAR CONDUCTION DELAY [130+ ms QRS DURATION] LEFT VENTRICULAR HYPERTROPHY AND ST-T CHANGE [VOLTAGE CRITERIA PLUS ST/T ABNORMALITY] PROBABLE LATERAL MYOCARDIAL INFARCTION , OF INDETERMINATE AGE [35 ms Q WAVE IN I/aVL/V5/V6] Compared to ECG 07/05/2015 00:20:00 ST (T wave) deviation now present Myocardial infarct finding now present Electronically Signed On 12-20-2024 15:56:16 CDT by Kathleen Knox M.D. [email or web address]
[2024-12-20 15:20] LABS: INR 0.98 (0.8-1.2)
[2024-12-20] MEDS: iohexol 350 mg/mL 500 mL Btl (per mL) IV (15:20)
[2024-12-20 15:21] LABS: Partial Thromboplastin Time 25.9 SECONDS (23.9-36.7)
[2024-12-20 15:26] LABS: Alanine Aminotransferase 8 U/L (0-33); Albumin Level 4.3 g/dL (3.5-5.2); Alkaline Phosphatase 85 U/L (35-105); Anion Gap 15.8 (5-19); Aspartate Amino Transferase 21 U/L (0-32); Blood Urea Nitrogen 17 mg/dL (8-23); Calcium 9.2 mg/dL (8.5-10.5); Carbon Dioxide 25 mmol/L (22-29); Chloride 105 mmol/L (98-107); Glomerular Filtration Rate 45.2 mL/min (90-130); Glucose 104 mg/dL (65-115); Osmolality Calculated 296 mOsm/kg (285-295); Potassium 3.8 mmol/L (3.5-5.1); Sodium 142 mmol/L (136-145); Total Bilirubin 0.4 mg/dL (0.15-1.2); Total Protein 7.3 g/dL (6.6-8.7)
[2024-12-20 15:30] VITALS: BP 182/103; PULSE 76; O2SAT 99
--- NOTE | 2024-12-20 15:36 | ED_ITS ---
HPI - Neuro Symptoms/Deficit 2 General: Chief Complaint: Neuro Symptoms/Deficit Stated Complaint: left side face numbness Time Seen by Provider: 12/20/24 14:52 Source: patient Mode of arrival: ambulatory Limitations: no limitations History of Present Illness: 64-year-old female states she had a whoo shing feeling in her head 2 days ago and started having some left-sided face numbness states it had resolved and happened again 30 minutes prior to arrival. She denies any severe headache states it is a 1 out of 10 she denies any weakness or slurred speech states she does have some numbness to the left side of her face. Denies any neck pain or stiffness Associated symptoms: Reports headache(s); Deny chest pain, nausea or vomiting Related Data Home Medications ?Medication ?Instructions ?Recorded ?Confirmed cholecalciferol (vitamin D3) 1,250 1,250 mcg PO DAILY 07/07/21 12/20/24 mcg (50,000 unit) capsule cyclobenzaprine 10 mg tablet 10 mg PO TID 12/20/2406/07 diclofenac sodium 50 mg 50 mg PO BID 12/20/24 tablet,delayed release omeprazole 40 mg capsule,delayed 40 mg PO DAILY 12/20/24 release Previous Rx's ?Medication ?Instructions ?Recorded aspirin 81 mg capsule 81 mg PO DAILY #30 caps 06/07 atorvastatin 80 mg tablet (Lipitor) 80 mg PO DAILY #30 tabs 12/20/24 Allergies Allergy/AdvReac Type Severity Reaction Status Date / Time codeine Allergy Severe ADR-Dizzine Verified 12/20/24 15:01 ss oxycodone (From Percocet) Allergy Severe ADR-Shakine Verified 12/20/24 15:01 ss Penicillins Allergy Severe ALGY-Fever Verified 12/20/24 15:01 baclofen Allergy ADR-Itching Verified 12/20/24 15:01 Review of Systems 2 Const: Denies: fever(s), chills, body aches or change in appetite Eyes: Reports: blurry vision; Denies: eye discomfort ENMT: Denies: throat pain or dental pain Card: Denies: chest pain Resp: Denies: dyspnea GI: Denies: abdominal pain, nausea, vomiting or diarrhea Musc: Denies: neck pain or back pain Skin/Breast: Denies: rash Neuro: Reports: headache(s) PFSH ED 2 PFSH: Medical History Gastritis History of major trauma Surgical History Hx of pelvic surgery NIH stroke score 2 NIHSS: Level Of Consciousness - 1a: 0 Level Of Consciousness Questions - 1b: Both Correct Level Of Consciousness Commands - 1c: Both Correct Best Gaze - 2: Normal Visual Abdullahi - 3: No Visual Loss Facial Palsy - 4: N ormal Motor Arm Right - 5: No Drift Motor Arm Left - 5: No Drift Motor Leg Right - 6: No Drift Motor Leg Left - 6: No Drift Limb Ataxia - 7: A bsent Sensory - 8: Mild To Moderate Loss Dysarthia - 10: Normal E xtinction And Inattention - 11: 0 Physical Exam 2 Const: COMMON NORMALS: no acute distress, patient oriented x3 and healthy appearing HENMT: COMMON NORMALS: normocephalic and atraumatic HEAD & SCALP: n ormocephalic and atraumatic Eye: COMMON NORMALS: Equal, round and reactive pupils present and EOMs intact bilaterally PUPIL: Yes Equal, round and reactive pupils present Neck/C-Spine: COMMON NORMALS: full ROM and supple Chest: COMMONS NORMALS: normal inspection of the chest Resp: COMMON NORMALS: normal respiratory effort, No retractions, No use of accessory muscles and clear to auscultation bilaterally AUSCULTATION: clear to auscultation bilaterally Cardio: COMMON NORMALS: regular rate, regular rhythm and No murmurs present (Cardio) RATE: regular rate RHYTHM: regular rhythm GI: COMMON NORMALS: Normal to inspection, nondistended, normoactive bowel sounds present, Soft to palpation, non-tender and no masses PALPATION: Yes Soft to palpation Extremity: COMMON NORMALS: normal to inspection and full ROM Neuro: COMMON NORMALS: patient oriented x3, moves all extremities and no focal motor deficits Psych: COMMON NORMALS: mental status grossly normal, Normal thought process present and cooperative THOUGHT PROCESS: Normal thought process present Skin: COMMON NORMALS: no rashes or lesions noted and no wounds GENERAL SKIN EXAM: no rashes or lesions noted Course 2 Vital Signs: Vital signs: Vital Signs Temperature 98.1 F 12/20/24 14:58 Pulse Rate 75 12/20/24 16:15 Respiratory Rate 20 H 12/20/24 14:58 Blood Pressure 178/120 12/20/24 16:15 Pulse Oximetry 95 12/20/24 16:15 Oxygen Delivery Me thod Room Air 12/20/24 14:58 MDM - Neuro Symptoms/Deficit Medical Decision Making Patient presents here with paresthesias left side of her face CT CTA are normal no signs of aneurysm or stroke. Patient was seen by neurology Dr. Martin will start on aspirin statin she is to follow-up with him outpatient she is return worsening she understands agrees to plan. Medical Records I reviewed the patient's medical records. Lab Data I reviewed the patient's lab results. 12/20/24 15:00 12/20/24 15:[address] 12/20/24 14:59 IMPRESSION: 1. No evidence of intracranial hemorrhage or mass effect. 2. No acute intracranial findings. Notified Nathan Cárdenas MD at 12/20/2024 3:11 PM. Head/Neck CTA 12/20/24 14:59 IMPRESSION: 1. No flow-limiting intracranial stenosis. 2. No significant cervical ICA stenosis Laboratory Results WBC 6.70 10^3/uL (3.29-11.43) 12/20/24 15:00 RBC 4.45 10^6/uL (3.85-5.65) 12/20/24 15:00 Hgb 13.40 g/dL (11.27-16.99) 12/20/24 15:00 Hct 40.5 % (36-47) 12/20/24 15:00 MCV 91.0 fl (85-98) 12/20/24 15:00 MCH 30.1 pg (27-33) 12/20/24 15:00 MCHC 33.1 g/dL (30-55) 12/20/24 15:00 RDW 13.7 % (12.1-15.1) 12/20/24 15:00 Plt Count 359 10^3/cmm (157-399) 12/20/24 15:00 MPV 10.5 fL (7.4-10.4) H 12/20/24 15:00 Neut % (Auto) 44.7 % 12/20/24 15:00 Lymph % (Auto) 38.8 % 12/20/24 15:00 Cherry % (Auto) 10.9 % 12/20/24 15:00 Eos % (Auto) 3.6 % 12/20/24 15:00 Baso % (Auto) 1.6 % 12/20/24 15:00 Neut # (Auto) 2.99 10^3/uL (1.8-7.7) 12/20/24 15:00 Lymph # (Auto) 2.6 10^3/uL (0.8-4.8) 12/20/24 15:00 Cherry # (Auto) 0.7 10^3/uL (0.2-0.9) 12/20/24 15:00 Eos # (Auto) 0.2 10^3/uL (0.0-0.8) 12/20/24 15:00 Baso # (Auto) 0.1 10^3/uL (0.0-0.1) 12/20/24 15:00 Nucleated RBC % (auto) 0 % 12/20/24 15:00 Nucleated RBCs # 0.0 /100WBC 12/20/24 15:00 PT 13.70 SECONDS (12.1-14.9) 12/20/24 15:00 INR 0.98 (0.8-1.2) 12/20/24 15:00 APTT 25.9 SECONDS (23.9-36.7) 12/20/24 15:00 Sodium 142 mmol/L (136-145) 12/20/24 15:00 Potassium 3.8 mmol/L (3.5-5.1) 12/20/24 15:00 Chloride 105 mmol/L (98-107) 12/20/24 15:00 Carbon Dioxide 25 mmol/L (22-29) 12/20/24 15:00 Anion Gap 15.8 (5-19) 12/20/24 15:00 BUN 17 mg/dL (8-23) 12/20/24 15:00 Creatinine 1.2 mg/dL (0.5-0.9) H 12/20/24 15:00 GFR Calculation 45.2 mL/min (90-130) L 12/20/24 15:00 Glucose 104 mg/dL (65-115) 12/20/24 15:00 POC Glucose 109 mg/dL (70-110) 12/20/24 14:58 Calculated Osmolality 296 mOsm/kg (285-295) H 12/20/24 15:00 Calcium 9.2 mg/dL (8.5-10.5) 12/20/24 15:00 Total Bilirubin 0.4 mg/dL (0.15-1.2) 12/20/24 15:00 AST 21 U/L (0-32) 12/20/24 15:00 ALT 8 U/L (0-33) 12/20/24 15:00 Alkaline Phosphatase 85 U/L (35-105) 12/20/24 15:00 Total Protein 7.3 g/dL (6.6-8.7) 12/20/24 15:00 Albumin 4.3 g/dL (3.5-5.2) 12/20/24 15:00 Globulin 3.0 g/dL (1.3-4.6) 12/20/24 15:00 Urine Color Yellow (Yellow) 12/20/24 16:10 Urine Appearance Clear (CLEAR) 12/20/24 16:10 Urine pH 6.5 (5-7) 12/20/24 16:10 Ur Specific [place] 1.005 (1.005-1.030) 12/20/24 16:10 Urine Protein Neg (Negative) 12/20/24 16:10 Urine Glucose (UA) Norm (Normal) 12/20/24 16:10 Urine Ketones Negative (Negative) 12/20/24 16:10 Urine Blood Neg (Negative) 12/20/24 16:10 Urine Nitrate Negative (Negative) 12/20/24 16:10 Urine Bilirubin Neg (Negative) 12/20/24 16:10 Urine Urobilinogen Norm mg/dL (Negative) 12/20/24 16:10 Ur Leukocyte Esterase Negative (Negative) 12/20/24 16:10 Amorphous Sediment Not Reportable 12/20/24 16:10 Urine Opiates Screen Negative ng/mL (Negative) 12/20/24 16:10 Ur Phencyclidine Scrn Negative ng/mL (Negative) 12/20/24 16:10 Urine Cocaine Screen Negative ng/mL (Negative) 12/20/24 16:10 U Marijuana (THC) Screen Positive ng/mL (Negative) H 12/20/24 16:10 All radiology interpretation(s) finalized by discharge EKG Data EKG 1: I personally reviewed and interpreted this EKG as follows: EKG interpretation date: 12/20/24 EKG interpretation time: 15:19 Interpretation: nsr hr [address] elevation qrs 137 qtc 429 Discharge Plan Discharge Patient Disposition: Home Clinical Impression: Paresthesia, Headache Condition: Stable Prescriptions: New aspirin 81 mg capsule 81 mg PO DAILY Qty: 30 0RF atorvastatin [Lipitor] 80 mg tablet 80 mg PO DAILY Qty: 30 0RF No Action cholecalciferol (vitamin D3) 1,250 mcg (50,000 unit) capsule 1,250 mcg PO DAILY cyclobenzaprine 10 mg tablet 10 mg PO TID omeprazole 40 mg capsule,delayed release(DR/EC) 40 mg PO DAILY diclofenac sodium 50 mg tablet,delayed release (DR/EC) 50 mg PO BID Discharge Orders: Discharge ED (Routine); Ordered 12/20/24 Ordered By: Nathan Cárdenas Referrals: Hannah Rowan MD [Primary Care Provider] - Hunter Martin MD [Physician] - 4-7 days Discharge Diet: Advance as tolerated Discharge Activity: Resume usual activity Patient Instructions: Paresthesia (ED), General Headache (ED) Print Language: Macedonian Coding Level of Care Code 

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
[2024-12-20 15:45] VITALS: BP 185/102; PULSE 74; O2SAT 97
[2024-12-20 16:15] VITALS: BP 178/120; PULSE 75; O2SAT 95
[2024-12-20] MEDS: hyDRALAzine 20 mg/mL INJ 1 mL 10 MG IVP (16:15)
[2024-12-20 16:17] LABS: Add Urine Microscopic? NO
[2024-12-20 16:23] LABS: Bilirubin Urine Neg (Negative); Blood Urine Neg (Negative); Glucose Urine UA Norm (Normal); Ketones Urine Negative (Negative); Leukocyte Esterase Urine Negative (Negative); Nitrate Urine Negative (Negative); Protein Urine Neg (Negative); Specific Gravity, Urine 1.005 (1.005-1.030); Urine Appearance Clear (CLEAR); Urine Color Yellow (Yellow); Urobilinogen Urine Norm (Negative); pH Urine 6.5 (5-7)
[2024-12-20 16:24] LABS: Charge for UA Resulting for Rev
[2024-12-20 16:29] LABS: Cocaine Screen Urine Negative (Negative); Opiate Screen Urine Negative (Negative); PCP Screen Urine Negative (Negative); THC Screen Urine Positive (Negative)
[2024-12-20 16:51] VITALS: BP 185/96; PULSE 73; O2SAT 96
[2024-12-20 16:51] LABS: Amphetamines Screen Urine Negative (Negative); Barbiturates Screen Urine Negative (Negative); Benzodiazepines Screen Urine Negative (Negative)
--- NOTE | 2024-12-20 18:24 | DCPLANNER ---
messaged neuro for er f/u
== END 2024-12-20 16:52 | disposition home or self-care (01) ==
PROVIDERS: Emergency Provider Emergency Medicine; PCP Internal Medicine
DX: R20.2 Paresthesia of skin (principal); R51.9 Headache, unspecified
CPT/HCPCS: 36415; 36416; 70450; 70496; 70498; 80053; 80306; 81003; 82962; 85025; 85610; 85730; 93005; 96374; 99285; J0360

== ENCOUNTER 2025-09-07 10:31 | Outpatient (RCR) | payer MEDICARE, MEDICAID, SELFPAY | END 2025-09-12 23:59 | disposition home or self-care (01) | LOC: SPT 10:31 | PROVIDERS: PCP Internal Medicine; Visit Provider Orthopaedic Surgery | DX: Z98.890 Other specified postprocedural states (principal) | CPT/HCPCS: 97110; 97161 ==